=== PATIENT | male | born 1935 | race Caucasian/White ===

== ENCOUNTER 2018-07-11 20:18 | Emergency (ER) | payer MEDICARE ==
[~2018-07-11] VITALS: Ht 188 cm; Wt 106.6 kg
[~2018-07-11 20:18] MED LIST: ASPIR 8181 MG ORAL; BROMOCRIPTINE2.5 MG PO; PARLODEL5 MG PO; RAMIPRIL2.5 MG ORAL; [UNRECOGNIZED DRUG - OTHER]
--- NOTE | 2018-07-11 20:37 | Emergency Room Report ---
History of Present Illness General Chief Complaint: Male Urogenital Problems Source: Patient, Significant Other Present Illness HPI Patient presents with inability to urinate since 1 PM. He's been taking sinus medication. The past 6-9 months he's had nocturia and has to wait to initiate a stream. He has incomplete voiding at that time. He's been told that his prostate is large. This never locked up like this completely. He denies any fevers or chills. There's no dysuria or hematuria. He states the pain at this time is 8/10 and pressure in his lower abdomen. He is taking a water pill for his high blood pressure. He denies chest pain, shortness of breath, nausea, vomiting, diarrhea. He is moving his bowels without difficulty. There is no rash. No headache or dizziness. History of hypertension and cardiac arrhythmia in the past. He's had surgery for varicose veins. Has important project he has to work on with increased stress. 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 Nursing Documentation: PMH: Agreed; PSxH: Agreed Nursing Documentation-PMH Hx Cardiac Problems: Yes - arrhythmia Hx Hypertension: Yes Hx Cancer: Yes - Pituitary tumor Hx Gastrointestinal Problems: No Hx Neurological Problems: No Review of Systems All Other Systems: negative except mentioned in HPI Physical Exam Vital Signs Date Time Temp Pulse Resp B/P (MAP) Pulse Ox O2 Delivery O2 Flow Rate FiO2 07/11/18 20:20 98.3 82 18 155/97 95 Room Air 98.2 Sp02 EP Interpretation: reviewed, normal General Appearance: well appearing, no apparent distress, GCS 15 Head: normocephalic Eyes: bilateral eye normal inspection, bilateral eye PERRL ENT: moist mucus membranes Neck: supple Respiratory: lungs clear, normal breath sounds Cardiovascular #1: regular rate, rhythm Cardiovascular #2: 2+ radial (R) Gastrointestinal: normal inspection, normal bowel sounds, no mass, tenderness, other - Large bladder Genitourinary: no CVA tenderness Musculoskeletal: back normal, gait/station normal, normal range of motion Neurologic: alert, oriented x3, grossly normal Psychiatric: mood/affect normal Skin: normal inspection, warm/dry Medical Decision Making Diagnostic Impression: Primary Impression: Urinary retention ER Course Patient presents with urinary retention. Differential includes antihistamines, benign prostatic hypertrophy, urinary tract infection amongst others. We need to exclude renal dysfunction. The patient will be evaluated with labs including urinalysis. A Delgado will be placed. Delgado draining clear urine. Labs with clear UA and normal renal function. Normal WBC. Patient improved and stable for outpatient observation and treatment. Laboratory Tests Test 07/11/18 21:07 07/11/18 21:45 Urine Color Pale yellow Urine Appearance Clear Urine pH 5 (4.5-8.0) Urine Specific [place] 1.015 (1.005-1.035) Urine Protein Negative (NEGATIVE) Urine Glucose (UA) Negative (NEGATIVE) Urine Ketones Negative (NEGATIVE) Urine Blood 2+ (NEGATIVE) H Urine Nitrite Negative (NEGATIVE) Urine Bilirubin Negative (NEGATIVE) Urine Urobilinogen Normal MG/DL (0.0-1.0) Urine Leukocyte Esterase Negative (NEGATIVE) Urine RBC 10-15 /HPF (0 - 0) H Urine WBC 0-2 /HPF (0 - 0) Urine Squamous Epithelial Cells Occasional /LPF Urine Bacteria Few /HPF (NONE) Urine Mucus Few /LPF (NONE/OCC) H White Blood Count 6.6 K/UL (4.8-10.8) Red Blood Count 4.57 M/UL (4.70-6.10) L Hemoglobin 14.4 G/DL (14.2-18.0) Hematocrit 41.9 % (42.0-52.0) L Mean Corpuscular Volume 92 FL (80-99) Mean Corpuscular Hemoglobin 31.6 PG (27.0-31.0) H Mean Corpuscular Hemoglobin Concent 34.4 G/DL (32.0-36.0) Red Cell Distribution Width 12.0 % (11.6-14.8) Platelet Count 236 K/UL (150-450) Mean Platelet Volume 6.2 FL (6.5-10.1) L Neutrophils (%) (Auto) 71.3 % (45.0-75.0) Lymphocytes (%) (Auto) 17.7 % (20.0-45.0) L Monocytes (%) (Auto) 8.0 % (1.0-10.0) Eosinophils (%) (Auto) 1.9 % (0.0-3.0) Basophils (%) (Auto) 1.0 % (0.0-2.0) Sodium Level 143 MMOL/L (136-145) Potassium Level 4.0 MMOL/L (3.5-5.1) Chloride Level 104 MMOL/L (98-107) Carbon Dioxide Level 32 MMOL/L (21-32) Anion Gap 7 mmol/L (5-15) Blood Urea Nitrogen 15 mg/dL (7-18) Creatinine 1.0 MG/DL (0.55-1.30) Estimate Glomerular Filtration Rate mL/min (>60) Glucose Level 93 MG/DL (74-106) Calcium Level 9.8 MG/DL (8.5-10.1) Total Bilirubin 0.7 MG/DL (0.2-1.0) Aspartate Amino Transferase (AST) 24 U/L (15-37) Alanine Aminotransferase (ALT) 33 U/L (12-78) Alkaline Phosphatase 58 U/L (46-116) Total Protein 7.2 G/DL (6.4-8.2) Albumin 4.0 G/DL (3.4-5.0) Globulin 3.2 g/dL Albumin/Globulin Ratio 1.3 (1.0-2.7) Lipase 94 U/L (73-393) Last Vital Signs Date Time Temp Pulse Resp B/P (MAP) Pulse Ox O2 Delivery O2 Flow Rate FiO2 07/12/18 00:00 98.0 74 18 153/85 98 Room Air 98.0 Status: improved Disposition: HOME, SELF-CARE Condition: Improved Scripts Tamsulosin HCl (Flomax) 0.4 Mg Cap.er.24h 0.4 MG ORAL DAILY, #14 CAP 1 Refill Prov: Guilherme Hartley M.D. 07/11/18 Guilherme Hartley M.D. Jul 11, 2018 20:37
[2018-07-11 21:35] LABS: APPEARANCE,URINE CLEAR; BILIRUBIN, URINE NEGATIVE (NEGATIVE); COLOR,URINE PALE YELLOW; GLUCOSE, URINE (UA) NEGATIVE (NEGATIVE); KETONES,URINE NEGATIVE (NEGATIVE); LEUKOCYTE ESTERASE ,URINE NEGATIVE (NEGATIVE); NITRITE,URINE NEGATIVE (NEGATIVE); PH,URINE 5 (4.5-8.0); PROTEIN,URINE NEGATIVE (NEGATIVE); UROBILINOGEN,URINE NORMAL MG/DL (0.0-1.0)
[2018-07-11 22:11] LABS: EOSINOPHILS % (AUTO) 1.9 % (0.0-3.0); HEMATOCRIT 41.9 % (42.0-52.0); HEMOGLOBIN 14.4 G/DL (14.2-18.0); LYMPHOCYTES % (AUTO) 17.7 % (20.0-45.0); MEAN CORPUSCULAR VOLUME 92 FL (80-99); NEUTROPHILS % (AUTO) 71.3 % (45.0-75.0); PLATELET COUNT 236 K/UL (150-450); RED BLOOD COUNT 4.57 M/UL (4.70-6.10); WHITE BLOOD COUNT 6.6 K/UL (4.8-10.8)
[2018-07-11 22:15] LABS: ANION GAP 7 mmol/L (5-15); BLOOD UREA NITROGEN 15 mg/dL (7-18); CALCIUM 9.8 MG/DL (8.5-10.1); CARBON DIOXIDE 32 MMOL/L (21-32); CHLORIDE 104 MMOL/L (98-107); SODIUM 143 MMOL/L (136-145)
[2018-07-11 22:21] LABS: ALANINE AMINOTRANSFERASE 33 U/L (12-78); ALBUMIN/GLOBULIN RATIO 1.3 (1.0-2.7); ALKALINE PHOSPHATASE 58 U/L (46-116); ASPARTATE AMINO TRANSFERASE 24 U/L (15-37); BILIRUBIN,TOTAL 0.7 MG/DL (0.2-1.0)
[2018-07-11 22:49] VITALS: BP 155/97
[2018-07-11] MEDS ORDERED: FLOMAX0.4 MG ORAL (23:32)
[2018-07-12] VITALS: BP 153/85
[2018-07-12] MEDS ORDERED: FUROSEMIDE20 M1 ORAL (07:40)
[2018-07-12] MEDS ORDERED: Tamsulosin 0.4mg cap ORAL SCH (21:00)
== END 2018-07-12 | disposition home or self-care (01) ==
LOC: EMR 20:44
DX: R33.9 Retention of urine, unspecified (principal); I10 Essential (primary) hypertension; I49.9 Cardiac arrhythmia, unspecified; N40.0 Benign prostatic hyperplasia without lower urinary tract symptoms; Z86.018 Personal history of other benign neoplasm; Z91.048 Other nonmedicinal substance allergy status; Z91.013 Allergy to seafood
CPT/HCPCS: 36415; 51702; 80053; 81003; 83690; 85025; 99283

== ENCOUNTER 2018-07-12 03:30 | Inpatient (IN) | payer MEDICARE ==
[2018-07-12] VITALS (7 sets, daily range): BP systolic 120–148; BP diastolic 64–78
[~2018-07-12] VITALS: Ht 188 cm; Wt 106.6 kg
[~2018-07-12 03:30] MED LIST changes: +FLOMAX0.4 MG ORAL
[2018-07-12 05:03] LABS: APPEARANCE,URINE CLOUDY; BILIRUBIN, URINE NEGATIVE (NEGATIVE); COLOR,URINE BROWN; GLUCOSE, URINE (UA) NEGATIVE (NEGATIVE); KETONES,URINE 1+ (NEGATIVE); LEUKOCYTE ESTERASE ,URINE 2+ (NEGATIVE); NITRITE,URINE NEGATIVE (NEGATIVE); PH,URINE 7 (4.5-8.0); PROTEIN,URINE 4+ (NEGATIVE); UROBILINOGEN,URINE 1 MG/DL (0.0-1.0)
[2018-07-12 07:12] LABS: ANION GAP 8 mmol/L (5-15); BLOOD UREA NITROGEN 15 mg/dL (7-18); CALCIUM 9.4 MG/DL (8.5-10.1); CARBON DIOXIDE 28 MMOL/L (21-32); CHLORIDE 104 MMOL/L (98-107); CREATININE 0.8 MG/DL (0.55-1.30); EOSINOPHILS % (AUTO) 1.7 % (0.0-3.0); HEMATOCRIT 43.2 % (42.0-52.0); HEMOGLOBIN 15.1 G/DL (14.2-18.0); INR 1.1 (0.9-1.1); LYMPHOCYTES % (AUTO) 13.6 % (20.0-45.0); MEAN CORPUSCULAR VOLUME 91 FL (80-99); MONOCYTES % (AUTO) 8.7 % (1.0-10.0); PLATELET COUNT 222 K/UL (150-450); POTASSIUM 3.5 MMOL/L (3.5-5.1); RED BLOOD COUNT 4.75 M/UL (4.70-6.10); RED CELL DISTRIBUTION WIDTH 11.9 % (11.6-14.8); SODIUM 140 MMOL/L (136-145); WHITE BLOOD COUNT 7.4 K/UL (4.8-10.8)
[2018-07-12] MEDS ORDERED: FUROSEMIDE20 M1 ORAL (07:40)
--- NOTE | 2018-07-12 15:00 | History and Physical Report ---
DATE OF ADMISSION: 07/12/2018 REASON FOR ADMISSION: Hematuria, possibly urinary tract infection. HISTORY OF PRESENT ILLNESS: This is an 82-year-old male, who is unable to urinate since 1 p.m. The patient taking medications and had noted history of nocturia with very slow stream and difficulty to void completely. The patient has been told he has significant prostatic enlargement, but has not had any issues with urination. Denies any fevers or chills. Denies any dysuria. The patient does have pain in the lower abdominal area. The patient was seen and evaluated and was admitted through the emergency room. The patient also noted to have hematuria on evaluation of the urine, currently stable and comfortable. PAST MEDICAL HISTORY: Notable for cardiac dysrhythmias, history of pituitary tumor, and prostatism. MEDICATIONS: Reviewed. ALLERGIES: Reviewed. Notable for iodine and shellfish. REVIEW OF SYSTEMS: All 10 points reviewed and otherwise negative. SOCIAL HISTORY: The patient is independent. Does not smoke or drink. He is . PHYSICAL EXAMINATION: GENERAL: A well-developed male, otherwise comfortable. VITAL SIGNS: Blood pressure 153/85, pulse 74, respirations 18, saturations 98%, and temperature is 98. HEENT: Negative. Extraocular movements are grossly intact. Oropharynx otherwise clear. NECK: Supple. LUNGS: Fairly clear and symmetric. No rhonchi or wheezes. CARDIAC: Normal S1 and S2. Slightly irregular without murmurs, rubs, or gallops. ABDOMEN: Soft, nontender, nondistended. EXTREMITIES: No cyanosis, clubbing, or edema. NEUROLOGIC: Grossly nonfocal. Delgado catheter in place. LABORATORY DATA: Reviewed. Electrolytes all within normal limits. White count 6.6, hematocrit 41, and platelets are 236. Urinalysis with too numerous to count red cells and repeat, the previous one was only 10 to 15. IMPRESSION: 1. Urinary retention, severe. Noted hematuria. 2. History of cardiac dysrhythmia. 3. LVH. 4. GERD. 5. 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 6. History of palpitations. 7. History of Von Willebrand disease. RECOMMENDATIONS: Supportive care. Resume medications. IV hydration. Empiric antibiotics. Obtain an urological evaluation and we will follow clinically for further changes and interventions. Patrick Hurtado M.D. DR: RALF JOB#: [id number] CC:
--- NOTE | 2018-07-12 16:15 | Consultation ---
DATE OF CONSULTATION: 07/12/2018 UROLOGY CONSULTATION CONSULTING PHYSICIAN: Cullen Roger M.D. REASON FOR CONSULTATION: The patient is an 82-year-old male, who was admitted with urinary retention and gross hematuria. Approximately 24 hours ago, he went into urinary retention and came to the emergency room. Delgado catheter was placed and it was working okay. He was discharged home, but returned with gross hematuria and Delgado catheter is not functioning properly. Catheter has been irrigated and is doing a little better, however, he was admitted to make sure this problem does not recur and/or readmission will be necessary. PAST MEDICAL HISTORY: Overall relatively healthy. PAST SURGICAL HISTORY: No urology surgeries. MEDICATIONS: He is on no blood thinners. PHYSICAL EXAMINATION: ABDOMEN: Soft, nontender. No palpable abnormal masses. GENITOURINARY: Testicles bilaterally descended without masses. Penis within normal limits with Delgado catheter in place. RECTAL: Prostate feels to be about 60 g in size and no discrete nodules noted. ASSESSMENT: Urinary retention, enlarged prostate, and gross hematuria. RECOMMENDATION: My recommendation is that the Delgado catheter be continued for now, that he be observed and the catheter be irrigated as needed, and that he continue Flomax which has been started. My further recommendations are that he may be discharged with the catheter in place and with close followup with a urologist. The other option would be if he is anxious to get the catheter out tomorrow, it would be reasonable if the urine is clear to remove the catheter and that he be continued on the Flomax and see if he is able to urinate prior to discharge is clearly an option. I will be signing off the case for now and we will be happy to reconsult or receive any phone calls in regard to this patient's condition. Cullen Roger DR: Ismael JOB#: [id number] CC:
[2018-07-12] MEDS ORDERED: Tamsulosin 0.4mg cap ORAL SCH (22:00)
[2018-07-13 04:00] VITALS: BP 137/73
[2018-07-13 07:38] LABS: ANION GAP 5 mmol/L (5-15); BLOOD UREA NITROGEN 13 mg/dL (7-18); CALCIUM 9.2 MG/DL (8.5-10.1); CARBON DIOXIDE 29 MMOL/L (21-32); CHLORIDE 105 MMOL/L (98-107); CREATININE 0.9 MG/DL (0.55-1.30); POTASSIUM 4.4 MMOL/L (3.5-5.1); SODIUM 139 MMOL/L (136-145)
[2018-07-13 07:43] LABS: BASOPHILS % (AUTO) 0.6 % (0.0-2.0); EOSINOPHILS % (AUTO) 2.4 % (0.0-3.0); HEMATOCRIT 41.5 % (42.0-52.0); HEMOGLOBIN 14.2 G/DL (14.2-18.0); LYMPHOCYTES % (AUTO) 13.3 % (20.0-45.0); MEAN CORPUSCULAR VOLUME 92 FL (80-99); MONOCYTES % (AUTO) 7.3 % (1.0-10.0); NEUTROPHILS % (AUTO) 76.4 % (45.0-75.0); PLATELET COUNT 189 K/UL (150-450); RED CELL DISTRIBUTION WIDTH 12.1 % (11.6-14.8); WHITE BLOOD COUNT 8.7 K/UL (4.8-10.8)
[2018-07-13 08:00] VITALS: BP_SYST 142; BP_SYST 152; BP_DIAS 76
--- NOTE | 2018-07-13 08:31 | General Progress Note ---
Assessment/Plan Assessment/Plan IMPRESSION: 1. Urinary retention, severe. Noted hematuria, likely traumatic 2. History of cardiac dysrhythmia. 3. LVH. 4. GERD. 5. 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 6. History of palpitations. 7. History of Von Willebrand disease. PLAN dc home culture negative no need for antibiotics flomax to bid arriaza to remain HH to assist outpatient urology- patient to arrange Subjective Allergies: Coded Allergies: IODINE AND IODIDE CONTAINING PRODUC (Unverified Allergy, Unknown, 11/15/14) SHELLFISH DERIVED (Unverified Allergy, Unknown, 11/15/14) Subjective urology noted d/w patient in detail wants to give arriaza in for now Objective Last 24 Hour Vital Signs Date Time Temp Pulse Resp B/P (MAP) Pulse Ox O2 Delivery O2 Flow Rate FiO2 07/13/18 04:00 98.2 70 18 137/73 (94) 95 98.2 07/12/18 23:50 98.0 63 18 120/65 (83) 96 98.0 07/12/18 21:14 97.9 66 19 124/64 (84) 96 97.9 07/12/18 21:00 Room Air 07/12/18 20:00 97.9 66 19 124/64 (84) 96 97.9 07/12/18 12:00 97.5 63 18 132/69 (90) 97 97.5 07/12/18 09:30 Room Air 07/12/18 09:00 97.9 61 18 148/78 (101) 96 97.9 Intake and Output 07/12/18 07/13/18 19:00 07:00 Intake Total 1200 ml 1650 ml Output Total 460 ml 1850 ml Balance 740 ml -200 ml Intake Oral 600 ml 480 ml IV Total 600 ml 1170 ml Output Urine Total 460 ml 1850 ml # Voids 2 Laboratory Tests 07/13/18 05:20: White Blood Count 8.7, Red Blood Count 4.50L, Hemoglobin 14.2, Hematocrit 41.5L , Mean Corpuscular Volume 92, Mean Corpuscular Hemoglobin 31.6H, Mean Corpuscular Hemoglobin Concent 34.3, Red Cell Distribution Width 12.1, Platelet Count 189, Mean Platelet Volume 6.6, Neutrophils (%) (Auto) 76.4H, Lymphocytes ( %) (Auto) 13.3L, Monocytes (%) (Auto) 7.3, Eosinophils (%) (Auto) 2.4, Basophils (%) (Auto) 0.6, Sodium Level 139, Potassium Level 4.4, Chloride Level 105, Carbon Dioxide Level 29, Anion Gap 5, Blood Urea Nitrogen 13, Creatinine 0.9, Estimat Glomerular Filtration Rate , Glucose Level 90, Calcium Level 9.2 Height (Feet): 6 Height (Inches): 2.00 Weight (Pounds): 235 Objective WDWN NAD clear breath sounds bilaterally without rhonchi or wheeze [id number] without MRG NABS nontender no HSM no CCE nonfocal arriaza clear Patrick Hurtado MD Jul 13, 2018 08:31
[2018-07-13] MEDS ORDERED: 1/2 NS 1000ml IV ONE ×2 (08:51→13:59)
[2018-07-13] MEDS ORDERED: Ramipril 2.5mg cap ORAL SCH (09:00)
[2018-07-13] MEDS ORDERED: Tamsulosin 0.4mg cap ORAL SCH (09:00)
[2018-07-13] MEDS ORDERED: BROMOCRIPTINE 2.5 MG ORAL SCH (09:00)
[2018-07-13 12:00] VITALS: BP 130/55
[2018-07-13] MEDS ORDERED: Tubing IV Secondary IV ONE (13:59)
--- NOTE | 2018-07-13 17:00 | Emergency Room Report ---
History of Present Illness General Chief Complaint: Male Urogenital Problems Source: Patient, Significant Other Present Illness HPI Patient re-presents with hematuria, blood at arriaza and difficulty urinating after having arriaza placed for urinary retention. He denies pain at this time. No fevers. No NVD. This is the first note: Patient presents with inability to urinate since 1 PM. He's been taking sinus medication. The past 6-9 months he's had nocturia and has to wait to initiate a stream. He has incomplete voiding at that time. He's been told that his prostate is large. This never locked up like this completely. He denies any fevers or chills. There's no dysuria or hematuria. He states the pain at this time is 8/10 and pressure in his lower abdomen. He is taking a water pill for his high blood pressure. He denies chest pain, shortness of breath, nausea, vomiting, diarrhea. He is moving his bowels without difficulty. There is no rash. No headache or dizziness. History of hypertension and cardiac arrhythmia in the past. He's had surgery for varicose veins. Has important project he has to work on with increased stress. 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 , sql database developer Reviewed Nursing Documentation: PMH: Agreed; PSxH: Agreed Nursing Documentation-PMH Hx Cardiac Problems: Yes Hx Hypertension: Yes Hx Cancer: No Hx Gastrointestinal Problems: No Hx Neurological Problems: No Review of Systems All Other Systems: negative except mentioned in HPI Physical Exam Vital Signs Date Time Temp Pulse Resp B/P (MAP) Pulse Ox O2 Delivery O2 Flow Rate FiO2 07/12/18 03:42 98.2 84 18 126/75 94 Room Air 98.2 Sp02 EP Interpretation: reviewed, normal General Appearance: well appearing, no apparent distress, GCS 15 Head: normocephalic Eyes: bilateral eye normal inspection, bilateral eye PERRL ENT: moist mucus membranes Neck: supple Respiratory: lungs clear, normal breath sounds Cardiovascular #1: regular rate, rhythm Cardiovascular #2: 2+ radial (R) Gastrointestinal: normal inspection, normal bowel sounds, non tender, no mass, non-distended Genitourinary: other - Arriaza present with some blood at meatus Musculoskeletal: back normal, gait/station normal, normal range of motion Neurologic: alert, oriented x3, grossly normal Psychiatric: mood/affect normal Skin: normal inspection, warm/dry Medical Decision Making Diagnostic Impression: Primary Impression: Hematuria Qualified Codes: R31.9 - Hematuria, unspecified Additional Impression: Urinary retention ER Course Patient with recent insertion of arriaza with bleeding. DDx: prostate trauma, hematuria, blocked arriaza. Repeat UA and irrigate arriaza. UA with hematuria. Irrigation X2 with lack of urine flow. Admit for urology consultation and possible continuous irrigation. Admit med Dr. Hurtado. Labs Test 07/12/18 04:38 07/12/18 06:27 07/13/18 05:20 Urine Color Brown Urine Appearance Cloudy Urine pH 7 (4.5-8.0) Urine Specific [place] 1.015 (1.005-1.035) Urine Protein 4+ (NEGATIVE) Urine Glucose (UA) Negative (NEGATIVE) Urine Ketones 1+ (NEGATIVE) Urine Blood 5+ (NEGATIVE) Urine Nitrite Negative (NEGATIVE) Urine Bilirubin Negative (NEGATIVE) Urine Urobilinogen 1 MG/DL (0.0-1.0) Urine Leukocyte Esterase 2+ (NEGATIVE) Urine RBC Tntc /HPF (0 - 0) Urine WBC 2-4 /HPF (0 - 0) Urine Squamous Epithelial Cells Occasional /LPF Urine Bacteria Few /HPF (NONE) Urine Mucus Few /LPF (NONE/OCC) White Blood Count 7.4 K/UL (4.8-10.8) 8.7 K/UL (4.8-10.8) Red Blood Count 4.75 M/UL (4.70-6.10) 4.50 M/UL (4.70-6.10) Hemoglobin 15.1 G/DL (14.2-18.0) 14.2 G/DL (14.2-18.0) Hematocrit 43.2 % (42.0-52.0) 41.5 % (42.0-52.0) Mean Corpuscular Volume 91 FL (80-99) 92 FL (80-99) Mean Corpuscular Hemoglobin 31.7 PG (27.0-31.0) 31.6 PG (27.0-31.0) Mean Corpuscular Hemoglobin Concent 34.9 G/DL (32.0-36.0) 34.3 G/DL (32.0-36.0) Red Cell Distribution Width 11.9 % (11.6-14.8) 12.1 % (11.6-14.8) Platelet Count 222 K/UL (150-450) 189 K/UL (150-450) Mean Platelet Volume 6.4 FL (6.5-10.1) 6.6 FL (6.5-10.1) Neutrophils (%) (Auto) 75.0 % (45.0-75.0) 76.4 % (45.0-75.0) Lymphocytes (%) (Auto) 13.6 % (20.0-45.0) 13.3 % (20.0-45.0) Monocytes (%) (Auto) 8.7 % (1.0-10.0) 7.3 % (1.0-10.0) Eosinophils (%) (Auto) 1.7 % (0.0-3.0) 2.4 % (0.0-3.0) Basophils (%) (Auto) 1.0 % (0.0-2.0) 0.6 % (0.0-2.0) Prothrombin Time 11.7 SEC (9.30-11.50) Prothromb Time International Ratio 1.1 (0.9-1.1) Activated Partial Thromboplast Time 28 SEC (23-33) Sodium Level 140 MMOL/L (136-145) 139 MMOL/L (136-145) Potassium Level 3.5 MMOL/L (3.5-5.1) 4.4 MMOL/L (3.5-5.1) Chloride Level 104 MMOL/L (98-107) 105 MMOL/L (98-107) Carbon Dioxide Level 28 MMOL/L (21-32) 29 MMOL/L (21-32) Anion Gap 8 mmol/L (5-15) 5 mmol/L (5-15) Blood Urea Nitrogen 15 mg/dL (7-18) 13 mg/dL (7-18) Creatinine 0.8 MG/DL (0.55-1.30) 0.9 MG/DL (0.55-1.30) Estimat Glomerular Filtration Rate mL/min (>60) mL/min (>60) Glucose Level 100 MG/DL (74-106) 90 MG/DL (74-106) Calcium Level 9.4 MG/DL (8.5-10.1) 9.2 MG/DL (8.5-10.1) Prostate Specific Antigen 11.42 ng/mL (0.13-4.0) Last Vital Signs Date Time Temp Pulse Resp B/P (MAP) Pulse Ox O2 Delivery O2 Flow Rate FiO2 07/13/18 12:00 98.0 85 18 130/55 (80) 94 98.0 07/13/18 09:00 Room Air Status: improved Disposition: ADMITTED INPATIENT Condition: Serious Referrals: NON PHYSICIAN (PCP) Patient Instructions: Hematuria, Adult Guilherme Hartley M.D. Jul 13, 2018 17:00
--- NOTE | 2018-07-16 07:56 | Discharge Summary ---
Discharge Summary Discharge Summary _ DATE OF ADMISSION: 07/12/2018 DATE OF DISCHARGE: 07/13/2018 REASON FOR ADMISSION: 82 years old male with past medical history significant for hypertension, cardiac arrhythmias with palpitations, history of pituitary tumor, enlarged prostate , GERD, von Willebrand's disease, was unable to urinate since 1 PM. Patient reported history of nocturia with very slow stream and difficulty to void completely. Patient had been told that he had significant prostatic enlargement but he never had an issue with urination in the past. No fever or chills. No chest pain or shortness of breath, no palpitations. Patient reported pain in the lower abdominal area. Upon evaluation, vital signs were stable. Delgado catheter which was earlier placed for urinary retention, with hematuria. Urinalysis revealed evidence of hematuria , but no obvious evidence of UTI. Laboratory workup revealed no leukocytosis, hemoglobin 15.1, hematocrit 43.2. Electrolytes and renal parameters were stable . BPH elevated 11.42 Delgado catheter was irrigated with adequate urine flow. Patient admitted for urology evaluation with diagnoses of urinary retention, hematuria. CONSULTANTS: urologist Dr. Roger HOSPITAL COURSE: Patient admitted to medical surgical floor. Patient started on IV fluids and empiric antibiotics. Urologist seen and evaluated patient. Delgado catheter was irrigated easily. Patient started on Flomax. Urologist recommended discharge patient with Delgado catheter with close follow- up with outpatient urologist. Urine culture was negative. Antibiotics discontinued. Flomax frequency was increased to twice a day. Home medications resumed. Blood pressure was managed with KRISTEN, and remained stable. Lasix was continued with close monitoring of renal parameters and volumes. GI prophayxlis provided. Hemoglobin and hematocrit remained stable. Patient was stable for discharge home with home health services with Delgado catheter in place / changed to leg bag. Patient was counseled to follow-up with a urologist next week as outpatient. Due to rapid and unexpected improvement in patient's condition, patient was discharged in one day. FINAL DIAGNOSES: Urinary retention Hematuria Left ventricular hypertrophy Hypertension GERD BPH History on von Willebrand's disease History of palpitations DISCHARGE MEDICATIONS: See Medication Reconciliation list. DISCHARGE INSTRUCTIONS: Patient discharge home outpatient follow-up with the urologist I have been assigned to dictate discharge summary for this account. I was not involved in the patient's management. Annetta Baldwin NP Jul 16, 2018 07:56
== END 2018-07-13 14:00 | disposition home health service (06) | DRG 726 ==
LOC: EMR 05:05 → 4W 06:35 → EDBEDREQ 07:44 → 3E 13:49
DX: N40.1 Benign prostatic hyperplasia with lower urinary tract symptoms (principal); D68.0 Von Willebrand disease; R33.8 Other retention of urine; R31.0 Gross hematuria; I51.7 Cardiomegaly; I10 Essential (primary) hypertension; K21.9 Gastro-esophageal reflux disease without esophagitis; R00.2 Palpitations; Z88.8 Allergy status to other drugs, medicaments and biological substances; Z91.013 Allergy to seafood
CPT/HCPCS: 36415; 80048; 81003; 84153; 85025; 85610; 85730; 87086